=== PATIENT | male | born 2000 | race Two or more races ===

== ENCOUNTER 2018-05-28 06:17 | Emergency (ER) | payer OTHER ==
[~2018-05-28] VITALS: Ht 188 cm; Wt 102.6 kg
[2018-05-28 06:21] VITALS: BP 175/104
[2018-05-28] MEDS ORDERED: IBUPROFEN 200 MG TABLET PO ONE (07:00)
[2018-05-28 07:21] LABS: BASOPHILS # (AUTO) 0.04 x10^3/uL (0-0.3); BASOPHILS % (AUTO) 1 % (0-1); EOSINOPHILS # (AUTO) 0.08 x10^3/uL (0-0.8); EOSINOPHILS % (AUTO) 1 % (1-7); LYMPHOCYTES % (AUTO) 25 % (22-44); MD NO; MEAN CORPUSCULAR HEMOGLOBIN 31.2 pg (27.5-34.5); MEAN CORPUSCULAR HGB CONC 33.8 g/dL (33.2-36.2); MEAN CORPUSCULAR VOLUME 92.4 fL (81-97); MEAN PLATELET VOLUME 9.8 fL (7.4-10.4); MONOCYTES # (AUTO) 0.35 x10^3/uL (0-1.4); MONOCYTES % (AUTO) 5 % (2-9); NEUTROPHILS # (AUTO) 4.72 x10^3/uL (1.8-8.0); NEUTROPHILS % (AUTO) 69 % (42-75); PLATELET COUNT 219 x10^3/uL (130-400); RED BLOOD COUNT 5.12 x10^6/uL (4.38-5.82); RED CELL DISTRIBUTION WIDTH 13.7 % (9.4-14.8)
[2018-05-28 07:31] LABS: ALBUMIN 4.3 g/dL (3.4-5.0); ANION GAP 10 mmol/L (5-15); CALCIUM 8.6 mg/dL (8.5-10.1); CHLORIDE 107 mmol/L (98-107)
== END 2018-05-28 08:16 | disposition home or self-care (01) ==
LOC: ED 08:10
DX: F10.120 Alcohol abuse with intoxication, uncomplicated (principal); V49.49XA Driver injured in collision with other motor vehicles in traffic accident, initial encounter; Y93.89 Activity, other specified; Y92.89 Other specified places as the place of occurrence of the external cause; Y99.2 Volunteer activity
CPT/HCPCS: 36415; 80048; 80307; 82040; 85025; 99284